=== PATIENT | male | born 1995 | race Caucasian/White ===

== ENCOUNTER 2021-05-01 21:20 | Emergency (ER) | payer BC ==
[~2021-05-01] VITALS: Ht 182.9 cm; Wt 80.0 kg
[2021-05-01] MEDS ORDERED: PROAIR HFA0.09 MG/AC IH (21:54)
[2021-05-01 23:06] VITALS: BP 136/76
== END 2021-05-01 23:06 | disposition home or self-care (01) ==
LOC: ED 21:20
DX: J98.9 Respiratory disorder, unspecified (principal); J45.909 Unspecified asthma, uncomplicated; Z20.822 Contact with and (suspected) exposure to COVID-19; Z79.899 Other long term (current) drug therapy